=== PATIENT | female | born 1990 | race Two or more races ===

== ENCOUNTER 2018-02-01 23:11 | Emergency (ER) | payer BC, OTHER ==
[~2018-02-01] VITALS: Ht 152.4 cm; Wt 59.0 kg
[2018-02-01 23:15] VITALS: BP 113/61
[2018-02-01] MEDS ORDERED: AMOX1TAB58 PO (23:48)
--- NOTE | 2018-02-01 23:48 | PHYS DOC ---
Past Medical History Past Medical History: No Pertinent History Past Surgical History: Other Additional Past Surgical Histo: left flopian tube removed Alcohol Use: Occasionally Drug Use: None Adult General Chief Complaint Chief Complaint: ANIMAL BITE HPI HPI Patient is a pleasant 27-year-old female presents to the emergency department for evaluation. She states that at about 4 PM today, 2 of her dogs were playing rough, and she was playing with them and she fell on top of one of the dogs, as it was nipping at her, causing her to sustain a bite on her medial aspect of her left knee and proximal calf. She states the dogs have otherwise been acting normally and are fully vaccinated, and her own tetanus is up-to-date. She states she initially had to go to work, and she presents to the emergency department today for evaluation. She denies any numbness or weakness. There is some bruising in the area of the bites, primarily between the 2 bite morales. There are no other wounds visible. The patient is able to ambulate without significant difficulty. Review of Systems Review of Systems Constitutional: Denies fever or chills [] Neurologic: Denies headache, focal weakness or sensory changes [] Allergies Allergies Allergies Coded Allergies Type Severity Reaction Last Updated Verified No Known Drug Allergies 10/09/13 No Physical Exam Physical Exam PHYSICAL EXAM: HEENT: Atruamatic NECK: Supple, normal ROM, non-tender. CARDIAC: Regular Rate and Rhythm LUNGS: Clear Bilaterally EXTREMITIES: On the medial aspect of the left leg, just distal to the knee, there are 2 bite morales, one is small and linear, measures about 1 cm, there is another wound about 2 inches distal to the initial wound, which is about 1.5 cm , and slightly more gaping. There is a small amount of blood present at the wound, without significant surrounding erythema or warmth. There is soft tissue contusion noted in between the 2 lesions. EKG EKG [] Radiology/Procedures Radiology/Procedures [] Course & Med Decision Making Course & Med Decision Making I discussed the risks/benefit of repair with the patient, namely improve cosmesis, versus increased risk of infection. The patient is unconcerned about cosmesis and would prefer to leave the wounds open. I discussed wound care, the need for close follow-up, and return precautions. Dragon Disclaimer Dragon Disclaimer This electronic medical record was generated, in whole or in part, using a voice recognition dictation system. Departure Departure Impression: Primary Impression: Dog bite Disposition: 01 HOME, SELF-CARE Condition: STABLE Referrals: QUINTIN CARRASCO MD (PCP) Patient Instructions: Animal Bite Scripts Amoxicillin/Potassium Clav (AUGMENTIN 500-125 TABLET) 1 Each Tablet 1 TAB PO TID, #30 TAB Prov: ANNMARIE MAYES MD 02/01/18 ANNMARIE MAYES MD Feb 01, 2018 23:48
[2018-02-02] MEDS: NEOMY/BACITR/POLYMYXIN OINT PACKET. TP ONE (00:08)
== END 2018-02-02 00:15 | disposition home or self-care (01) ==
LOC: ER 23:11
DX: S81.852A Open bite, left lower leg, initial encounter (principal); S80.12XA Contusion of left lower leg, initial encounter; W54.0XXA Bitten by dog, initial encounter; Y93.89 Activity, other specified; Y92.89 Other specified places as the place of occurrence of the external cause; Y99.8 Other external cause status
CPT/HCPCS: 99283

== ENCOUNTER 2018-03-28 20:33 | Emergency (ER) | payer BC ==
[~2018-03-28] VITALS: Ht 152.4 cm; Wt 59.0 kg
[~2018-03-28 20:33] MED LIST: AMOX1TAB58 PO
[2018-03-28 22:01] LABS: BILIRUBIN,URINE NEGATIVE (NEG); CLARITY,URINE CLOUDY; COLOR,URINE YELLOW; NITRITE,URINE POSITIVE (NEG); PROTEIN,URINE NEGATIVE (NEG-TRACE); UROBILINOGEN,URINE 0.2 mg/dL (0.2 mg/dL)
[2018-03-28 22:09] LABS: BACTERIA,URINE MANY /HPF (0-FEW); SQUAMOUS EPITHELIAL CELL,UR MOD /LPF
[2018-03-28] MEDS ORDERED: CEPH-264 PO (22:15)
--- NOTE | 2018-03-28 22:16 | PHYS DOC ---
Past Medical History Past Medical History: No Pertinent History, Other Additional Past Medical Histor: ENDOMETRIOSIS Past Surgical History: Additional Past Surgical Histo: left flopian tube removed Alcohol Use: Occasionally Drug Use: None Adult General Chief Complaint Chief Complaint: ABDOMINAL PAIN [facility] HPI Patient is a 28 year old female who presents with patient states that yesterday she began having low mid abdominal cramps which she moves it hurts when she patient pain it hurts and she is having frequency. Patient states her last missed her period was February 11. She also states that her lower back was starting to hurt. Afebrile. She states she has not seen any blood in her urine. She denies any vaginal discharge. She has some nausea present but no vomiting or diarrhea. Rates her pain 8 out of 10 and states she took Aleve at 12:00. Has no known drug history. She does have a history of urinary tract infections of which she states that this does feel like a urinary tract infection. She takes no medications daily and she has a past nuchal history of , left fallopian tube removal and endometriosis. Review of Systems Review of Systems Constitutional: Denies fever or chills [] Respiratory: Denies cough or shortness of breath [] Cardiovascular: No additional information not addressed in HPI [] GI: Low mid abdominal pain, nausea, Denies vomiting, bloody stools or diarrhea [ ] : Urinary frequency. Denies dysuria or hematuria [] Musculoskeletal: low back pain or joint pain [] All other systems were reviewed and found to be within normal limits, except as documented in this note. Allergies Allergies Allergies Coded Allergies Type Severity Reaction Last Updated Verified No Known Drug Allergies 10/09/13 No Physical Exam Physical Exam Constitutional: Well developed, well nourished, no acute distress, non-toxic appearance. [] HENT: Normocephalic, atraumatic, bilateral external ears normal, oropharynx moist, no oral exudates, nose normal. [] Eyes: PERRLA, EOMI, conjunctiva normal, no discharge. [] Neck: Normal range of motion, no tenderness, supple, no stridor. [] Cardiovascular:Heart rate regular rhythm, no murmur [] Lungs & Thorax: Bilateral breath sounds clear to auscultation [] Abdomen: Bowel sounds normal, soft, no tenderness, no masses, no pulsatile masses. [] Skin: Warm, dry, no erythema, no rash. [] Back: No tenderness, no CVA tenderness. [] Extremities: No tenderness, no cyanosis, no clubbing, ROM intact, no edema. [] Neurologic: Alert and oriented X 3, normal motor function, normal sensory function, no focal deficits noted. [] Psychologic: Affect normal, judgement normal, mood normal. [] Current Patient Data Vital Signs Vital Signs Date Time Temp Pulse Resp B/P (MAP) Pulse Ox O2 Delivery O2 Flow Rate FiO2 03/28/18 22:40 68 16 126/76 (93) 99 Room Air 03/28/18 20:45 98.2 98.2 Lab Values Laboratory Tests Test 03/28/18 20:40 03/28/18 21:52 Urine Collection Type Unknown Urine Color Yellow Urine Clarity Cloudy Urine pH 6.0 Urine Specific [place] 1.025 Urine Protein Negative mg/dL (NEG-TRACE) Urine Glucose (UA) Negative mg/dL (NEG) Urine Ketones (Stick) 15 mg/dL (NEG) Urine Blood Small (NEG) Urine Nitrite Positive (NEG) Urine Bilirubin Negative (NEG) Urine Urobilinogen Dipstick 0.2 mg/dL (0.2 mg/dL) Urine Leukocyte Esterase Small (NEG) Urine RBC 1-2 /HPF (0-2) Urine WBC 5-10 /HPF (0-4) Urine Squamous Epithelial Cells Mod /LPF Urine Bacteria Many /HPF (0-FEW) Urine Mucus Mod /LPF POC Urine HCG, Qualitative Hcg negative (Negative) EKG EKG [] Radiology/Procedures Radiology/Procedures [] Course & Med Decision Making Course & Med Decision Making Patient is a 28 year old female who presents with patient states that yesterday she began having low mid abdominal cramps which she moves it hurts when she patient pain it hurts and she is having frequency. Patient states her last missed her period was February 11. She also states that her lower back was starting to hurt. Afebrile. She states she has not seen any blood in her urine. She denies any vaginal discharge. She has some nausea present but no vomiting or diarrhea. Rates her pain 8 out of 10 and states she took Aleve at 12:00. Has no known drug history. She does have a history of urinary tract infections of which she states that this does feel like a urinary tract infection. She takes no medications daily and she has a past nuchal history of , left fallopian tube removal and endometriosis. Him and is soft and nontender. She did say when I pushed on her lower mid abdomen that is made her feel like she had urinate. Learn oriented. Skin pink warm and dry. Afebrile. Signs are within normal limits. Her urine is positive for nitrates. Patient be treated for urinary tract infection she follow up with her primary care within the next 3-5 days. Especially if she is not getting better. She is given Keflex antibiotic and should take ibuprofen or Tylenol for any kind of pain. [] Dragon Disclaimer Dragon Disclaimer This electronic medical record was generated, in whole or in part, using a voice recognition dictation system. Departure Departure Impression: Primary Impression: UTI (urinary tract infection) Disposition: 01 HOME, SELF-CARE Condition: STABLE Referrals: QUINTIN CARRASCO MD (PCP) Patient Instructions: Urinary Frequency, Urinary Tract Infection Additional Instructions: Follow-up with her primary care. Take medications as prescribed. Scripts Cephalexin (KEFLEX) 500 Mg Capsule 1 CAP PO BID, #14 CAP Prov: FLASH MORALES APRN 03/28/18 Problem Qualifiers Primary Impression: UTI (urinary tract infection) Urinary tract infection type: site unspecified Hematuria presence: with hematuria Qualified Codes: N39.0 - Urinary tract infection, site not specified ; R31.9 - Hematuria, unspecified FLASH MORALES GRA[employer]ER Mar 28, 2018 22:16
[2018-03-28 22:40] VITALS: BP 126/76
== END 2018-03-28 22:40 | disposition home or self-care (01) ==
LOC: ER 20:33
DX: N39.0 Urinary tract infection, site not specified (principal); Z98.890 Other specified postprocedural states
CPT/HCPCS: 81001; 81025; 87086; 99283